=== PATIENT | male | born 1955 | race Caucasian/White ===

== ENCOUNTER → 2019-07-07 | Day surgery (SDC) | payer OTHER, MEDICARE ==
[~2019-07-07] MED LIST: ACETAMINOPHEN 325 MG TABLET PO PRN; ALBUTEROL SULFATE 2.5 MG/3 ML NEBU. NEB PRN; ALPR2TAB2 PO; ATROPINE 0.5 MG/5 ML DISP.SYRIN. IV PRN; CEPH-264 PO; IV RINGERS SOLUTION,LACTATED 1,000 ML IV SCH; LORA10TA68 PO; MIDAZOLAM HCL PF 2 MG/2 ML VIAL. IV PRN; ONDANSETRON PF 4 MG/2 ML VIAL. IV PRN; OXYC15TA61 PO; PANT40TA5 PO; PHENOL ORAL SPRAY 177ML BOTTLE. MM PRN; PROPOFOL 10,000 MCG/ML (20ML) VIAL IV ONE; SULF1TAB24 PO; diphenhydrAMINE 50 MG/ML VIAL IV PRN
[2019-07-07 13:35] VITALS: BP 116/62
--- NOTE | 2019-07-11 12:06 | PATHOLOGY ---
[facility] Accession Number: [id number] . 01 Material submitted: . PART A: colon - DESCENDING POLYP. Modifiers: descending PART B: sigmoid colon - SIGMOID POLYP X2 . 01 Clinical history: . Screening . 02 Diagnosis: A. Colon biopsies, descending colon polyp: - Consistent with prominent mucosal fold. . B. Colon biopsies, sigmoid colon polyps x2: - Tubular adenoma. - Hyperplastic polyp. (JPM:jad; 07/11/2019) QMS 07/11/2019 0914 Local . 02 Comment: Sections of the descending colon biopsy reveal segments of colonic mucosa consistent with prominent mucosal fold. . Sections of the sigmoid colon biopsy reveal three segments of tubular adenoma, one segment of hyperplastic polyp, and an additional segment of colonic mucosa. There is no high-grade dysplasia or evidence of malignancy. (JPM:jad; 07/11/2019) . 02 Electronically signed: . Genaro Estrada MD, Pathologist NPI- [id number] . 01 Gross description: . A. Received in formalin labeled "Tom Iraheta, descending polyp," are 2 segments of herron soft tissue measuring 0.6 x 0.2 x 0.2 cm in aggregate dimensions and measuring 0.3 cm each in maximum dimension. The specimen is submitted entirely in cassette A1. . B. Received in formalin labeled "Tom Iraheta, sigmoid polyp x2," are 3 segments of ehrron soft tissue measuring 0.6 x 0.6 x 0.3 cm in aggregate dimensions and ranging from 0.3 to 0.5 cm in maximum dimension. The specimen is submitted entirely in cassette B1. (TSD; 07/10/2019) TOB/TOB 07/10/2019 2301 Local . 02 Pathologist provided ICD-10: D12.5, K63.5 . 02 CPT . 696944, 866675 Specimen Comment: A courtesy copy of this report has been sent to [phone] Specimen Comment: [id number] Specimen Comment: Report sent to / DR SANDHU Specimen Comment: A duplicate report has been generated due to demographic updates. Performed at: 01 [facility] [address] [facility] [address], [place] [id number] MD Ruddy Aponte MD Phone: [phone] Performed at: 02 [facility] [address] [place], [place] [id number] MD Genaro Estrada MD Phone: [phone]
== END ==
LOC: SURG 10:57
PROVIDERS: ATTEND Internal Medicine Gastroenterology
DX: Z12.11 Encounter for screening for malignant neoplasm of colon (principal); D12.5 Benign neoplasm of sigmoid colon; K21.9 Gastro-esophageal reflux disease without esophagitis
CPT/HCPCS: 45380; 45381; 45385; 88305; J2704; J7120

== ENCOUNTER 2019-09-08 07:38 | Emergency (ER) | payer MEDICARE ==
[~2019-09-08] VITALS: Ht 177.8 cm; Wt 83.9 kg
[~2019-09-08 07:38] MED LIST changes: -ACETAMINOPHEN 325 MG TABLET PO PRN; -ALBUTEROL SULFATE 2.5 MG/3 ML NEBU. NEB PRN; -ATROPINE 0.5 MG/5 ML DISP.SYRIN. IV PRN; -IV RINGERS SOLUTION,LACTATED 1,000 ML IV SCH; -MIDAZOLAM HCL PF 2 MG/2 ML VIAL. IV PRN; -ONDANSETRON PF 4 MG/2 ML VIAL. IV PRN; -PHENOL ORAL SPRAY 177ML BOTTLE. MM PRN; -PROPOFOL 10,000 MCG/ML (20ML) VIAL IV ONE; -diphenhydrAMINE 50 MG/ML VIAL IV PRN
[2019-09-08 08:16] VITALS: BP 115/72
[2019-09-08] MEDS ORDERED: DICL100G18 TP (08:28)
--- NOTE | 2019-09-08 08:31 | PHYS DOC ---
Past History Past Medical History: No Pertinent History Additional Past Medical Histor: chronic pain/back pain/DJD Past Surgical History: No Surgical History Additional Past Surgical Histo: Back surgery Smoking: Cigarettes, Greater than 1 pack/day Additional Smoking Information: 1 PPD Alcohol Use: None Drug Use: None Adult General Chief Complaint Chief Complaint: SHOULDER INJURY HPI HPI Patient is a 64 year old male who presents with left shoulder pain after a slip and near fall yesterday. He states that he slipped on a wet floor and swung his arms around wildly. He was able to catch himself without falling. Thereafter he began had progressively worsening dull constant left shoulder pain. He denies numbness or tingling. His pain is worse with movement. He has no other associated symptoms. He has no other exacerbating or relieving factors. Review of Systems Review of Systems Constitutional: Denies fever or chills [] Eyes: Denies change in visual acuity, redness, or eye pain [] HENT: Denies nasal congestion or sore throat [] Respiratory: Denies cough or shortness of breath [] Cardiovascular: No additional information not addressed in HPI [] GI: Denies abdominal pain, nausea, vomiting, bloody stools or diarrhea [] : Denies dysuria or hematuria [] Musculoskeletal: Denies back pain Integument: Denies rash or skin lesions [] Neurologic: Denies headache, focal weakness or sensory changes [] Endocrine: Denies polyuria or polydipsia [] All other systems were reviewed and found to be within normal limits, except as documented in this note. Family History Family History No pertinent family medical history was reported Current Medications Current Medications Oxycodone for chronic back pain Allergies Allergies Allergies Coded Allergies Type Severity Reaction Last Updated Verified No Known Drug Allergies 07/03/19 No Physical Exam Physical Exam Constitutional: Well developed, well nourished, no acute distress, non-toxic appearance. [] HENT: Normocephalic, atraumatic, Eyes: EOMI, conjunctiva normal, no discharge. [] Neck: Normal range of motion, no tenderness, supple, no stridor. [] Cardiovascular:Heart rate regular rhythm, Lungs & Thorax: Bilateral breath sounds clear to auscultation [] Abdomen: Bowel sounds normal, soft, no tenderness, no masses, no pulsatile masses. [] Skin: Warm, dry, no erythema, no rash. [] Extremities: Exam limited to the left shoulder: On inspection there is no d eformity, bruising or abrasions. Palpation revealed point tenderness over the AC joint. Normal active and passive range of motion. Normal strength. Neurologic: Alert and oriented X 3, normal motor function, normal sensory function, no focal deficits noted. [] Psychologic: Affect normal, judgement normal, mood normal. [] Current Patient Data Vital Signs Vital Signs Date Time Temp Pulse Resp B/P (MAP) Pulse Ox O2 Delivery O2 Flow Rate FiO2 09/08/19 08:16 98.7 72 16 98 Room Air EKG EKG [] Radiology/Procedures Radiology/Procedures [] Course & Med Decision Making Course & Med Decision Making Pertinent Labs and Imaging studies reviewed. (See chart for details) [] Dragon Disclaimer Dragon Disclaimer This electronic medical record was generated, in whole or in part, using a voice recognition dictation system. Departure Departure: Impression: Primary Impression: Sprain of acromioclavicular joint Disposition: HOME, SELF-CARE Condition: STABLE Referrals: VERONICA SANDHU MD (PCP) Patient Instructions: Acromioclavicular Injuries Additional Instructions: Tom was seen in the emergency department for shoulder pain. No emergency medical condition was found on history physical exam. His symptoms are most consistent with acromioclavicular joint sprain. She was advised to use Voltaren gel with without lidocaine patches. He is advised follow-up with his primary care doctor in the next 3-5 days if his symptoms do not improve. Scripts Diclofenac Sodium (VOLTAREN) 100 Gm Gel..gram. 1 GM TP QID for joint pain, #100 GM 2 Refills Prov: MARKO RAMIREZ MD 09/08/19 Problem Qualifiers Primary Impression: Sprain of acromioclavicular joint Encounter type: initial encounter Laterality: left Qualified Codes: S43.52XA - Sprain of left acromioclavicular joint, initial encounter MARKO RAMIREZ MD Sep 08, 2019 08:31
--- NOTE | 2019-09-08 08:56 | RAD ---
Examination: SHOULDER 2+V LEFT History: Shoulder pain Comparison/Correlation: None Findings: Total 3 images of the left shoulder were obtained. No fracture or bony destruction. Glenohumeral joint relationship is unremarkable. Slight narrowing of the acromioclavicular joint is noted. Soft tissues are unremarkable. Impression: Unremarkable exam. Electronically signed by: Vitaly Zabala MD (09/08/2019 8:53 AM) [facility]
== END 2019-09-08 08:29 | disposition home or self-care (01) ==
LOC: ER 07:38
DX: S43.52XA Sprain of left acromioclavicular joint, initial encounter (principal); G89.29 Other chronic pain; F17.210 Nicotine dependence, cigarettes, uncomplicated; W01.0XXA Fall on same level from slipping, tripping and stumbling without subsequent striking against object, initial encounter; Y93.89 Activity, other specified; Y92.89 Other specified places as the place of occurrence of the external cause; Y99.8 Other external cause status
CPT/HCPCS: 73030; 99284

== ENCOUNTER 2021-01-26 08:59 | Emergency (ER) | payer MEDICARE ==
[~2021-01-26] VITALS: Ht 177.8 cm; Wt 81.8 kg
[~2021-01-26 08:59] MED LIST changes: +DICL100G18 TP; -PANT40TA5 PO; +PANT40TA6 PO
[2021-01-26 09:00] VITALS: BP 99/59
--- NOTE | 2021-01-26 09:43 | PHYS DOC ---
Past History Past Medical History: A-Fib, Anxiety Additional Past Medical Histor: chronic pain/back pain/DJD, Perales's esophagus Past Surgical History: No Surgical History Additional Past Surgical Histo: Back surgery Smoking: Cigarettes, Greater than 1 pack/day Alcohol Use: None Drug Use: None Adult General Chief Complaint Chief Complaint: OTHER COMPLAINTS HPI HPI Patient is a [age] year old [sex] who presents with [] Here with . Ate meatballs last night with generalized abdominal cramping for which she took Pepto-Bismol. Woke up this morning and had x1 episode of nausea and emesis. has pictures, reports initial emesis with a chunky with subsequent emesis that was nonbloody nonbilious. Patient recently started on Eliquis 3 days prior for atrial fibrillation, here for concern that he should stop taking Eliquis Review of Systems Review of Systems Fourteen body systems of review of systems have been reviewed. See HPI for pertinent positives and negative responses, other thompson all other systems are negative, non-pertinent or non-contributory Allergies Allergies Allergies Coded Allergies Type Severity Reaction Last Updated Verified No Known Drug Allergies 07/03/19 No Physical Exam Physical Exam Constitutional: Well developed, well nourished, no acute distress, non-toxic appearance. HENT: Normocephalic, atraumatic, bilateral external ears normal, oropharynx moist, no oral exudates, nose normal. Eyes: PERRLA, EOMI, conjunctiva normal, no discharge. Neck: Normal range of motion, no tenderness, supple, no stridor. Cardiovascular: Heart rate regular, sinus rhythm, no murmurs rubs or gallops Lungs & Thorax: Bilateral breath sounds clear to auscultation Abdomen: Bowel sounds normal, soft, no tenderness, no masses, no pulsatile masses. Nonsurgical abdomen, no peritoneal signs Skin: Warm, dry, no erythema, no rash. Back: No tenderness, no CVA tenderness. Extremities: No tenderness, no cyanosis, no clubbing, ROM intact, no edema. Neurologic: Alert and oriented X 3, grossly normal motor & sensory function, no focal deficits noted. Psychologic: Affect normal, judgement normal, mood normal. Current Patient Data Vital Signs Vital Signs Date Time Temp Pulse Resp B/P (MAP) Pulse Ox O2 Delivery O2 Flow Rate FiO2 01/26/21 09:00 97.7 74 16 99/59 (72) 97 Room Air EKG EKG [] Radiology/Procedures Radiology/Procedures [] Heart Score Risk Factors: Risk Factors: DM, Current or recent (<one month) smoker, HTN, HLP, family history of CAD, obesity. Risk Scores: Risk Factors: DM, Current or recent (<one month) smoker, HTN, HLP, family history of CAD, obesity. Course & Med Decision Making Course & Med Decision Making Pertinent Labs and Imaging studies reviewed. (See chart for details) [] Dragon Disclaimer Dragon Disclaimer This electronic medical record was generated, in whole or in part, using a voice recognition dictation system. Departure Departure: Impression: Primary Impression: Nausea & vomiting Disposition: HOME / SELF CARE / HOMELESS Condition: GOOD Referrals: VERONICA SANDHU MD (PCP) Additional Instructions: As discussed prior to ER departure, your vital signs and physical examination were nonconcerning for any emergent or surgical issues. You most likely have a viral illness or other self-limiting issue which should resolve in the next few days to a week. Appearance of your emesis was nonconcerning for hemoptysis, you should continue taking your Eliquis daily as prescribed. It is recommended you contact your primary care physician first thing tomorrow morning to review ER visit today. You should return to the ED if you develop abdominal pain, fever > 100.3, black/bloody stools, black/bloody vomiting, cannot keep water down, or any other new or concerning symptoms. VERONICA BLANCO DO Jan 26, 2021 09:43
== END 2021-01-26 09:57 | disposition home or self-care (01) ==
LOC: ER 08:59
DX: R10.84 Generalized abdominal pain (principal); R11.2 Nausea with vomiting, unspecified; F17.210 Nicotine dependence, cigarettes, uncomplicated
CPT/HCPCS: 99281

== ENCOUNTER → 2021-08-19 | Outpatient (CLI) | payer MEDICARE | LOC: LAB 09:55 | PROVIDERS: ATTEND Internal Medicine Gastroenterology | DX: Z01.812 Encounter for preprocedural laboratory examination (principal); R10.13 Epigastric pain; K21.9 Gastro-esophageal reflux disease without esophagitis; Z20.822 Contact with and (suspected) exposure to COVID-19 | CPT/HCPCS: C9803; U0003 ==

== ENCOUNTER → 2021-08-22 | Day surgery (SDC) | payer MEDICARE ==
[~2021-08-22] MED LIST changes: +IPRATRPIUM/ALBUTEROL 0.5/2.5MG 3 ML NEBU. NEB PRN; +IV RINGERS SOLUTION,LACTATED 1,000 ML IV SCH; +LIDOCAINE 2% PF 5 ML VIAL. ONE; +MIDAZOLAM HCL PF 2 MG/2 ML VIAL. IV ONE; +ONDANSETRON PF 4 MG/2 ML VIAL. IV PRN; +PROPOFOL 10,000 MCG/ML (20ML) VIAL IV ONE
[2021-08-22 13:25] VITALS: BP 105/77
--- NOTE | 2021-08-27 16:10 | PATHOLOGY ---
[facility] Accession Number: [id number] . 01 Material submitted: . esophagus - DISTAL ESOPHAGUS BIOPSY. Modifiers: distal . 01 Clinical history: . BLOATING EGD . 02 Diagnosis: Esophageal biopsies, distal esophagus. - Segments of squamous esophageal mucosa with contiguous and separate segments of columnar-lined mucosa showing mild to moderate chronic inflammation and extensive intestinal metaplasia with goblet cells, consistent with Perales's change. (JPM:pit; 08/27/2021) P 08/27/2021 1454 Local . 02 Comment: There is no dysplasia or evidence of malignancy. (JPM:pit; 08/27/2021) . 02 Electronically signed: . Genaro Estrada MD, Pathologist NPI- [id number] . 01 Gross description: . The specimen is received in formalin, labeled "Luis Albertord, Tom, distal esophagus" and consists of 3 herron irregular tissues aggregating 0.5 x 0.4 x 0.1 cm which are filtered and submitted in toto in A1.(ALATNA; 08/26/2021) DKA/DKA 08/26/2021 1136 Local . 02 Pathologist provided ICD-10: K20.90 . 02 CPT . 372908 Specimen Comment: A courtesy copy of this report has been sent to [phone], [phone] Specimen Comment: [id number] Specimen Comment: Report sent to / DR SANDHU Performed at: 01 [facility] [address] [facility] [address], [place] [id number] MD Harman De Dios MD Phone: [phone] Performed at: 02 [facility] [address] [place], [place] [id number] MD Genaro Estrada MD Phone: [phone]
== END | disposition home or self-care (01) ==
LOC: SURG 10:43
PROVIDERS: ATTEND Internal Medicine Gastroenterology
DX: R13.10 Dysphagia, unspecified (principal); R12 Heartburn; K44.9 Diaphragmatic hernia without obstruction or gangrene; K21.00 Gastro-esophageal reflux disease with esophagitis, without bleeding; K31.89 Other diseases of stomach and duodenum; Z87.891 Personal history of nicotine dependence; Z79.899 Other long term (current) drug therapy; Z98.890 Other specified postprocedural states; Z20.822 Contact with and (suspected) exposure to COVID-19
CPT/HCPCS: 43239; 43450; C9803; J2001; J2704; J7120; U0003; 43249; 88305